=== PATIENT | male | born 1970 | race Two or more races ===

== ENCOUNTER 2020-08-06 08:28 | Outpatient (CLI) | payer OTHER | END 2020-08-06 08:35 | disposition home or self-care (01) | LOC: SONOGRAMA 08:28 | PROVIDERS: ATTEND Internal Medicine Gastroenterology | DX: K76.0 Fatty (change of) liver, not elsewhere classified (principal) ==

== ENCOUNTER → 2022-06-30 08:00 | Outpatient (CLI) | payer OTHER ==
[~2022-06-30] VITALS: Ht 177.8 cm; Wt 112.0 kg
[~2022-06-30 08:00] MED LIST: ATACAND32 MG PO; DIETHYLPROPION75 MG PO; TRICOR145 MG PO
== END | disposition home or self-care (01) ==
LOC: ADM 08:00 → LAB 08:00 → ADM 10:45 → EDSTATUS 07-02 10:45 → CIR.AMB 07-02 10:45
PROVIDERS: ATTEND Colon & Rectal Surgery
DX: Z03.818 Encounter for observation for suspected exposure to other biological agents ruled out (principal); Z20.822 Contact with and (suspected) exposure to COVID-19

== ENCOUNTER 2022-06-30 10:10 | Outpatient (CLI) | payer OTHER ==
[2022-06-30] MEDS ORDERED: TRICOR145 MG PO (13:11)
[2022-06-30] MEDS ORDERED: ATACAND32 MG PO (13:11)
[2022-06-30] MEDS ORDERED: DIETHYLPROPION75 MG PO (13:11)
== END 2022-06-30 10:18 | disposition home or self-care (01) ==
LOC: RAD 10:10
PROVIDERS: ATTEND Colon & Rectal Surgery
DX: K60.0 Acute anal fissure (principal)

== ENCOUNTER → 2022-07-29 | Outpatient (CLI) | payer OTHER | END | disposition home or self-care (01) | LOC: NUCLEAR 07-23 09:00 | PROVIDERS: ATTEND Internal Medicine | DX: I11.9 Hypertensive heart disease without heart failure (principal); I48.19 Other persistent atrial fibrillation ==

== ENCOUNTER 2024-07-09 15:54 | Emergency (ER) | payer OTHER ==
[~2024-07-09] VITALS: Ht 177.8 cm; Wt 111.1 kg
[~2024-07-09 15:54] MED LIST changes: -AZITHROMYCIN500 MG PO; -ELIQUIS5 MG PO; -TOPROL XL25 M1
[2024-07-09] MEDS ORDERED: ELIQUIS5 MG PO (16:31)
[2024-07-09] MEDS ORDERED: TOPROL XL25 M1 (16:32)
[2024-07-09] MEDS ORDERED: AZITHROMYCIN500 MG PO (16:32)
[2024-07-09 18:41] LABS: HEMATOCRIT 41.8 % (39.0-48.0); HEMOGLOBIN 13.8 g/dL (13-16.00); MEAN CELL VOLUME 85.6 fL (80.0-100.00); MEAN CORPUSCULAR HEMOGLOBIN 28.3 pg (27.00-32.0); PLATELET COUNT 286 K/uL (150-450); RED BLOOD COUNT 4.89 M/uL (4.00-6.00); RED CELL DISTRIBUTION WIDTH 15.2 % (11.5-14.5)
[2024-07-09 19:44] LABS: CREATININE SERUM 0.9 mg/dL (0.70-1.30); GFR 87.29; POTASSIUM 4.54 mEq/L (3.5-5.1)
[2024-07-09 20:01] LABS: URINE APPEARANCE Clear; URINE BILIRRUBIN Negative (NEGATIVE); URINE BLOOD Moderate; URINE COLOR Yellow; URINE GLUCOSE Negative (NEGATIVE); URINE KETONE Negative (NEGATIVE); URINE LEUKOCYTE Moderate; URINE NITRATE Negative; URINE PROTEIN Negative (NEGATIVE)
[2024-07-09 20:04] LABS: URINE BACTERIA 1232.4 uL (0.0-1933); URINE CAST 2.06 uL (0.0-1.40); URINE EPITHELIAL CELLS 8.2 uL (0.0-38.8); URINE RBC 193.3 uL (0.0-20.8); URINE WBC 200.2 uL (0.0-23.2)
[2024-07-09] MEDS ORDERED: levoFLOXacin 750 MG TABLET PO STA (20:36)
[2024-07-09] MEDS ORDERED: PHENAZOPYRIDINE HCL 100 MG TABLET PO STA (20:39)
== END 2024-07-09 21:29 | disposition home or self-care (01) ==
LOC: ER 15:56
PROVIDERS: General Practice
DX: R50.9 Fever, unspecified (principal); R30.0 Dysuria; N39.0 Urinary tract infection, site not specified; B96.1 Klebsiella pneumoniae [K. pneumoniae] as the cause of diseases classified elsewhere; Z16.11 Resistance to penicillins

== ENCOUNTER → 2024-07-09 | Emergency (ER) | payer OTHER ==
[~2024-07-09] MED LIST changes: +AZITHROMYCIN500 MG PO; +ELIQUIS5 MG PO; +TOPROL XL25 M1
== END | disposition home or self-care (01) ==
LOC: ER 22:31
DX: R30.0 Dysuria (principal); R50.9 Fever, unspecified